=== PATIENT | female | born 1960 | race Caucasian/White ===

== ENCOUNTER 2019-08-15 22:44 | Emergency (ER) | payer OTHER ==
[2019-08-15 23:27] VITALS: BP 150/71
[2019-08-15] MEDS ORDERED: ASPIRIN 81 MG TABLET, CHEWABLE PO ONE (23:55)
[2019-08-15] MEDS ORDERED: ONDANSETRON 4 MG TAB.RAPDIS PO ONE (23:56)
[2019-08-15] MEDS ORDERED: NORMAL SALINE 1000 ML 1,000 ML IV ONE (23:56)
--- NOTE | 2019-08-15 23:57 | ER Document Report ---
ED Medical Screen (RME) - General Chief Complaint: General Weakness Stated Complaint: SHORTNESS OF BREATH Time Seen by Provider: 08/15/19 23:55 Mode of Arrival: Wheelchair Information source: Patient Notes: Patient states that around 930 this evening she had a fast heart rate became short of breath and felt faint. Patient does states she is had cold symptoms for the past 5 days. Patient denies any significant cough. Patient complains of a burning sensation in her chest but attributes this to acid reflux. Patient does complain of nausea. Patient does complain of feeling lightheaded still. I have greeted and performed a rapid initial assessment of this patient. A comprehensive ED assessment and evaluation of the patient, analysis of test results and completion of the medical decision making process will be conducted by additional ED providers. TRAVEL OUTSIDE OF THE [place] IN LAST 30 DAYS: No - Related Data Allergies/Adverse Reactions: Penicillins Allergy (Verified 08/15/19 23:53) Sulfa (Sulfonamide Antibiotics) Allergy (Verified 08/15/19 23:53) Physical Exam - Vital signs Vitals: Temp Pulse Resp BP Pulse Ox 98.2 F 93 18 150/71 H 99 08/15/19 23:26 08/15/19 23:26 08/15/19 23:26 08/15/19 23:26 08/15/19 23:26 - Respiratory Respiratory status: No respiratory distress Chest status: Tender Breath sounds: Normal Course - Vital Signs Vital signs: Temp Pulse Resp BP Pulse Ox 98.2 F 93 18 150/71 H 99 08/15/19 23:26 08/15/19 23:26 08/15/19 23:26 08/15/19 23:26 08/15/19 23:26
--- NOTE | 2019-08-16 00:29 | RADIOLOGY REPORT (SQ) ---
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 Findings: The cardiomediastinal silhouette is normal in size.No pneumothorax is seen. No acute airspace opacities are seen. No discrete pleural effusion is apparent. Impression: No acute airspace opacities are seen.
[2019-08-16 01:12] LABS: ABSOLUTE LYMPHOCYTES (AUTO) 1.9 10^3/uL (0.5-4.7); ABSOLUTE MONOCYTES (AUTO) 0.5 10^3/uL (0.1-1.4); ABSOLUTE NEUT (AUTO) 6.1 10^3/uL (1.7-8.2); BASOPHILS % (AUTO) 0.6 % (0-2); EOSINOPHILS % (AUTO) 0.6 % (0-6); HEMATOCRIT 41.2 % (36.0-47.0); HEMOGLOBIN 13.7 g/dL (12.0-15.5); LYMPHOCYTES % (AUTO) 22.1 % (13-45); MEAN CORPUSCULAR HEMOGLOBIN 29.9 pg (27.0-33.4); MEAN CORPUSCULAR HGB CONC 33.2 g/dL (32.0-36.0); MEAN CORPUSCULAR VOLUME 90 fl (80-97); MONOCYTES % (AUTO) 5.7 % (3-13); PLATELET COUNT 305 10^3/uL (150-450); RED BLOOD COUNT 4.57 10^6/uL (3.72-5.28); RED CELL DISTRIBUTION WIDTH 13.8 % (11.5-14.0); TOTAL CELLS COUNTED % (AUTO) 100 %; WHITE BLOOD COUNT 8.5 10^3/uL (4.0-10.5)
[2019-08-16 01:42] LABS: ALBUMIN 4.3 g/dL (3.5-5.0); ALKALINE PHOSPHATASE 102 U/L (38-126); ANION GAP 9 (5-19); ASPARTATE AMINO TRANSFERASE 29 U/L (14-36); BILIRUBIN,TOTAL 0.2 mg/dL (0.2-1.3); BLOOD UREA NITROGEN 16 mg/dL (7-20); CALCIUM 9.3 mg/dL (8.4-10.2); CARBON DIOXIDE 27 mmol/L (22-30); CHLORIDE 106 mmol/L (98-107); GLUCOSE 128 mg/dL (75-110); POTASSIUM 4.5 mmol/L (3.6-5.0); TOTAL PROTEIN 7.5 g/dL (6.3-8.2)
[2019-08-16] MEDS ORDERED: ASPIRIN 81 MG TABLET, CHEWABLE ONE (01:57)
--- NOTE | 2019-08-16 04:13 | ER Document Report ---
ED General - General Chief Complaint: Nausea/Vomiting Stated Complaint: SHORTNESS OF BREATH Time Seen by Provider: 08/15/19 23:55 Mode of Arrival: Wheelchair Information source: Patient TRAVEL OUTSIDE OF THE [place] IN LAST 30 DAYS: No - HPI Onset: Other - last night around 11pm Onset/Duration: Sudden Quality of pain: Burning, Sharp Severity: Moderate Pain Level: 2 Associated symptoms: Shortness of breath, Other - Anxiety, GERD Exacerbated by: Denies Relieved by: Denies Similar symptoms previously: Yes - with Anxiety Recently seen / treated by doctor: Yes - Patient recently had an upper and lower endoscopy and was told she has GERD Notes: 59 year old female with a history of GERD (she just had an upper and lower endoscopy and she is on a PPI), Diabetes, and Anxiety here for chest pain, palpitations, and shortness of breath that started around 11PM last night and lasted a couple hours. The patient says she has been under a lot of stress and she felt like this was just a panic attack. The patient tells me she saw a Pit Shovel Operator about a year ago since she was having chest pains and she had a community health cadia stress test then. The patient was referred to a GI Doctor by the Pit Shovel Operator and she recently was diagnosed with GERD. - Related Data Allergies/Adverse Reactions: Penicillins Allergy (Verified 08/15/19 23:53) Sulfa (Sulfonamide Antibiotics) Allergy (Verified 08/15/19 23:53) Past Medical History - General Information source: Patient - Social History Smoking Status: Never Smoker Chew tobacco use (# tins/day): No Frequency of alcohol use: Social Drug Abuse: None Lives with: Family Family History: CAD - in parents in their mid 50s Patient has suicidal ideation: No Patient has homicidal ideation: No - Past Medical History Cardiac Medical History: Reports: None Pulmonary Medical History: Reports: None EENT Medical History: Reports: None Neurological Medical History: Reports: None Endocrine Medical History: Reports: Hx Diabetes Mellitus Type 2 Renal/ Medical History: Reports: None Malignancy Medical History: Reports: None GI Medical History: Reports: Hx Gastroesophageal Reflux Disease Musculoskeletal Medical History: Reports None Skin Medical History: Reports None Psychiatric Medical History: Reports: Hx Anxiety Review of Systems - Review of Systems Constitutional: No symptoms reported EENT: No symptoms reported Cardiovascular: Chest pain, Palpitations Respiratory: Short of breath Gastrointestinal: Other - GERD Symptoms Genitourinary: No symptoms reported Female Genitourinary: No symptoms reported Musculoskeletal: No symptoms reported Skin: No symptoms reported Hematologic/Lymphatic: No symptoms reported Neurological/Psychological: Anxiety -: Yes All other systems reviewed and negative Physical Exam - Vital signs Vitals: Temp Pulse Resp BP Pulse Ox 98.2 F 93 18 150/71 H 99 08/15/19 23:26 08/15/19 23:26 08/15/19 23:26 08/15/19 23:26 08/15/19 23:26 - Notes Notes: GENERAL: Well-appearing, well-nourished and in no acute distress. HEAD: Atraumatic, normocephalic. EYES: Pupils equal round and reactive to light, extraocular movements intact, sclera anicteric, conjunctiva are normal. ENT: TMs normal, nares patent, oropharynx clear without exudates. Moist mucous membranes. NECK: Normal range of motion, supple without lymphadenopathy or JVD. LUNGS: Breath sounds clear to auscultation bilaterally and equal. No wheezes rales or rhonchi. HEART: Regular rate and rhythm without murmurs, rubs or gallops. ABDOMEN: Soft, nontender, normoactive bowel sounds. No guarding, no rebound. No masses appreciated. EXTREMITIES: Normal range of motion, no pitting or edema. No clubbing or cyanosis. NEUROLOGICAL: Cranial nerves II through XII grossly intact. Normal speech, nor mal gait. PSYCH: Normal mood, normal affect. SKIN: Warm, Dry, normal turgor, no rashes or lesions noted. Course - Re-evaluation Re-evalutation: 08/16/19 04:23 The patient sounds like she had a panic attack or a flare up of her GERD. The patient is had a normal stress test about a year ago. Although she has some risk factors for CAD (she has DM and a family history of CAD), the patient's chest pain episode does not sound consistent with CAD today. The patient had an unremarkable EKG, unremarkable chest xray, and negative Trop. Patient told to follow up with her PCP, GI Doctor and to consider follow up with the Pit Shovel Operator she saw in the last year (especially if she has chest pains not in the setting of anxiety and GERD). - Vital Signs Vital signs: Temp Pulse Resp BP Pulse Ox 98.2 F 93 18 150/71 H 99 08/15/19 23:26 08/15/19 23:26 08/15/19 23:26 08/15/19 23:26 08/15/19 23:26 - Laboratory Result Diagrams: 08/16/19 00:30 08/16/19 00:30 Laboratory results interpreted by me: 08/16/19 00:30 Glucose 128 H - Diagnostic Test Radiology reviewed: Image reviewed, Reports reviewed - EKG Interpretation by Me EKG shows normal: Sinus rhythm, [place], Intervals, QRS Complexes, ST-T Waves Rate: Normal Discharge - Discharge Clinical Impression: Palpitations, Anxiety Chest pain Qualifiers: Chest pain type: unspecified Qualified Code(s): R07.9 - Chest pain, unspecified GERD (gastroesophageal reflux disease) Qualifiers: Esophagitis presence: with esophagitis Qualified Code(s): K21.0 - Gastro- esophageal reflux disease with esophagitis Condition: Stable Disposition: HOME, SELF-CARE Instructions: Anxiety ([facility]), Chest Pain of Unclear Cause ([facility]), Reflux Disease (GERD) ([facility]) Additional Instructions: Follow up with your primary care doctor and with your GI Doctor. Consider follow up with a Pit Shovel Operator if you have chest pains which are not related to anxiety or acid reflux. Return to an ER for persistent chest pain, chest pain with nausea/vomiting, chest pain with trouble breathing, radiation of chest pain to your arms or neck or if you are worse.
--- NOTE | 2019-08-16 08:01 | EKG REPORT ---
SEVERITY:- NORMAL ECG - SINUS RHYTHM : Confirmed by: Helen Elkins MD 16-Aug-2019 07:59:34
== END 2019-08-16 04:54 | disposition home or self-care (01) ==
LOC: ER 22:44
DX: K21.0 Gastro-esophageal reflux disease with esophagitis (principal); R00.2 Palpitations; F41.9 Anxiety disorder, unspecified; R07.9 Chest pain, unspecified; R11.2 Nausea with vomiting, unspecified; R06.02 Shortness of breath; E11.9 Type 2 diabetes mellitus without complications; Z88.0 Allergy status to penicillin; Z88.2 Allergy status to sulfonamides
CPT/HCPCS: 36415; 71046; 80053; 83690; 83735; 84443; 84484; 85025; 93005; 93010; 99285